=== PATIENT | male | born 1995 | race Caucasian/White ===

== ENCOUNTER 2025-01-06 19:27 | Emergency (ER) | payer SELFPAY ==
[~2025-01-06] VITALS: Ht 175.3 cm; Wt 84.0 kg
[2025-01-06 19:38] VITALS: BP 142/84; PULSE 88; RESP 20; TEMP 37.1; O2SAT 99
[2025-01-06] MEDS: TRANEXAMIC ACID 1,000MG/10ML IV ONE (20:30)
[2025-01-06 23:38] LABS: HIV 1/2 AB P24AG Negative (Negative)
[2025-01-06 23:51] VITALS: TEMP 98.8
[2025-01-06] MEDS: ACETAMINOPHEN 500MG TABLET PO ONE (23:51)
[2025-01-07 13:46] LABS: HEPATITIS B SURFACE ANTIGEN NEGATIVE; HEPATITIS C VIR.AB 0.05 INDEXVAL (0.00-0.80)
== END 2025-01-07 | disposition home or self-care (01) ==
LOC: ER 19:27
DX: S01.81XA Laceration without foreign body of other part of head, initial encounter (principal); F19.90 Other psychoactive substance use, unspecified, uncomplicated; X58.XXXA Exposure to other specified factors, initial encounter; Y93.89 Activity, other specified; Y92.89 Other specified places as the place of occurrence of the external cause; Y99.8 Other external cause status
CPT/HCPCS: 12011; 36415; 99283